=== PATIENT | female | born 1975 | race Caucasian/White ===

== ENCOUNTER 2018-07-25 02:55 | Emergency (ER) | payer OTHER ==
[~2018-07-25] VITALS: Ht 165.1 cm; Wt 85.0 kg
[2018-07-25 02:59] VITALS: Ht 165.1 cm; Wt 85.0 kg
[2018-07-25] MEDS ORDERED: GLUCOPHAGE500 MG PO (03:01)
[2018-07-25] MEDS ORDERED: COLACE100 MG PO (03:02)
[2018-07-25] MEDS ORDERED: SINGULAIR10 MG PO (03:02)
[2018-07-25] MEDS ORDERED: SENNA LAXATIVE8.6 MG PO (03:02)
[2018-07-25] MEDS ORDERED: ZYRTEC10 MG PO (03:02)
[2018-07-25] MEDS ORDERED: TRULICITY0.75 MG/0. SC (03:02)
[2018-07-25] MEDS ORDERED: HUMALOG 30100 UNITS/ SC (03:03)
[2018-07-25 03:22] LABS: APPEARANCE CLOUDY (CLEAR); BILIRUBIN NEGATIVE (NEGATIVE); COLOR YELLOW (YELLOW); GLUCOSE 1000 mg/dL (NEGATIVE); KETONE NEGATIVE (NEGATIVE); NITRITE NEGATIVE (NEGATIVE); PROTEIN 2+ mg/dL (NEGATIVE); UROBILINOGEN NORMAL (NORMAL)
[2018-07-25 03:23] LABS: RED CELLS - URINE >50 /hpf (0-5)
[2018-07-25 03:24] LABS: BACTERIA FEW /hpf (NONE SEEN); EPITHELIAL CELLS 0-5 /hpf (0-5)
[2018-07-25 03:36] LABS: BASOPHILS 0.3 % (0-2); EOSINOPHILS 3.8 % (0-7); HEMATOCRIT 41.5 % (36.0-48.0); HEMOGLOBIN 14.2 g/dL (12-16); IMMATURE GRANULOCYTES 0.2 % (0-5); MCH 30.1 pg (26.0-34.0); MCHC 34.2 g/dL (31.0-37.0); MCV 87.9 fL (80.0-100.0); MEAN PLATELET VOLUME 9.9 fL (7.4-10.4); MONOCYTES 4.5 % (2-11); NEUTROPHILS 72.2 % (40-80); PLATELET COUNT 239 10x3/uL (130-400); RBC 4.72 10x6/uL (4.00-5.40); RDW 13.2 % (11.5-14.5); WBC 14.2 10x3/uL (4.8-10.8)
[2018-07-25 03:45] LABS: INR 1.04 (0.85-1.17); PROTIME 13.1 SECONDS (11.6-15.0)
[2018-07-25 03:46] LABS: HCG SERUM NEGATIVE (NEGATIVE)
[2018-07-25 03:50] LABS: ALBUMIN 3.5 g/dL (3.4-5.0); ALKALINE PHOSPHATASE 81 U/L (46-116); ALT (SGPT) 29 U/L (10-68); BILIRUBIN - TOTAL 0.54 mg/dL (0.2-1.3); CALC OSMOLALITY 281 mosm/kg (275-300); CALCIUM 8.8 mg/dL (8.5-10.1); CARBON DIOXIDE 25.3 mmol/L (21.0-32.0); CHLORIDE - SERUM 102 mmol/L (98-107); CREATININE - SERUM 0.8 mg/dL (0.6-1.3); GLUCOSE 166 mg/dL (74-106); POTASSIUM - SERUM 3.5 mmol/L (3.5-5.1); PROTEIN - SERUM 7.3 g/dL (6.4-8.2); SODIUM 138 mmol/L (136-145); UREA NITROGEN 17 mg/dL (7-18); eGFR NON AFRICAN AMERICAN 84 mL/min (90-120)
[2018-07-25] MEDS ORDERED: KEFLEX250 MG PO (06:06)
[2018-07-25] MEDS ORDERED: LEVSIN/ANASP0.125 MG PO (06:06)
[2018-07-25 06:15] VITALS: BP 125/65
== END 2018-07-25 06:32 | disposition home or self-care (01) ==
LOC: D.ER 02:55
PROVIDERS: Family Medicine
DX: R31.9 Hematuria, unspecified (principal); N39.0 Urinary tract infection, site not specified